=== PATIENT | female | born 1945 | race Asian ===

== ENCOUNTER 2016-08-26 09:51 | Outpatient (CLI) | payer MEDICARE, OTHER | END 2016-08-26 09:52 | disposition home or self-care (01) | DX: M81.0 Age-related osteoporosis without current pathological fracture (principal) ==

== ENCOUNTER 2016-11-11 10:22 | Outpatient (CLI) | payer MEDICARE, OTHER ==
--- NOTE | 2016-11-11 15:38 | XRAY Report ---
STANDING BILATERAL KNEES: 11/11/2016 CLINICAL INDICATION: Osteoarthritis. FINDINGS: Standing frontal and lateral views of the bilateral knees demonstrate mild bilateral osteo arthritis, with small osteophytes. There is no evidence of acute fracture. No effusion is present on either side. IMPRESSION: MILD BILATERAL OSTEOARTHRITIS. JOB #: [id number] EXT JOB #:[id number]
== END 2016-11-11 10:23 | disposition home or self-care (01) ==
LOC: DI 10:22
PROVIDERS: ATTEND Family Medicine
DX: M17.0 Bilateral primary osteoarthritis of knee (principal)
CPT/HCPCS: 73565

== ENCOUNTER 2017-05-10 10:44 | Outpatient (CLI) | payer MEDICARE, OTHER | END 2017-05-10 10:45 | disposition home or self-care (01) | LOC: DI 10:44 | PROVIDERS: ATTEND Radiology Radiation Oncology | DX: Z53.9 Procedure and treatment not carried out, unspecified reason (principal) ==

== ENCOUNTER 2017-05-18 12:54 | Outpatient (CLI) | payer MEDICARE, OTHER ==
--- NOTE | 2017-05-18 15:31 | Mammography Report ---
DIGITAL DIAGNOSTIC BILATERAL MAMMOGRAM: 05/18/2017 CLINICAL INDICATION: History of left breast cancer, status post lumpectomy and radiation therapy. COMPARISON: 08/2016, 03/2016, 08/2015, 02/2015 from [facility]; 01/2015 , 12/2014, 12/2013, 12/2012 from [facility]. TECHNIQUE: Bilateral CC and MLO views, left true lateral and spot magnification views. FINDINGS: The breasts again demonstrate scattered fibroglandular densities bilaterally. Postoperative and posttreatment changes in the left breast are stable. Coarse and punctate, typically benign calcifications are present. No suspicious masses, clustered microcalcifications, or regions of architectural distortion are identified. IMPRESSION: BENIGN FINDINGS. RECOMMENDATION: ROUTINE ANNUAL SCREENING UNLESS OTHERWISE CLINICALLY INDICATED. BIRADS CATEGORY 2-BENIGN FINDINGS. STANDARD QUALIFYING STATEMENTS 1. This examination was reviewed with the aid of Computer-Aided Detection (CAD). 2. A negative or benign imaging report should not delay biopsy if clinically suspicious findings are present. Consider surgical consultation if warranted. More than 5% of cancers are not identified by imaging. 3. Dense breasts may obscure an underlying neoplasm. JOB #: [id number] EXT JOB #: [id number] CHAR
== END 2017-05-18 12:55 | disposition home or self-care (01) ==
LOC: DI 12:54
PROVIDERS: ATTEND Radiology Radiation Oncology
DX: Z08 Encounter for follow-up examination after completed treatment for malignant neoplasm (principal); Z85.3 Personal history of malignant neoplasm of breast
CPT/HCPCS: 77066

== ENCOUNTER 2019-01-11 12:33 | Outpatient (CLI) | payer MEDICARE, OTHER ==
--- NOTE | 2019-01-11 15:47 | Ultrasound Report ---
Reason: CYST Procedure Date: 01/11/2019 Accession Number: [id number] / [id number] Procedure: US - Ext Limited Non Vascular CPT Code: FULL RESULT: EXAM: LEFT UPPER EXTREMITY MUSCULOSKELETAL ULTRASOUND - LIMITED EXAM DATE: 01/11/2019 01:32 PM. CLINICAL HISTORY: Dorsal wrist mass x 4 months. COMPARISON: None. TECHNIQUE: Real-time scanning was performed with static images obtained. FINDINGS: Dorsal to the wrist joint and in communication with the articular space is a 0.8 x 0.4 x 0.7 cm fluid collection, presumably a ganglion cyst. IMPRESSION: Ganglion cyst. Recommendation: If not amenable to immobilization, consider aspiration. RADIA
== END 2019-01-11 12:34 | disposition home or self-care (01) ==
LOC: DI 12:33
PROVIDERS: ATTEND Family Medicine
DX: M67.432 Ganglion, left wrist (principal)
CPT/HCPCS: 76882

== ENCOUNTER 2019-05-15 07:00 | Outpatient (CLI) | payer MEDICARE, OTHER | END 2019-05-15 23:59 | disposition home or self-care (01) | LOC: LAB.R 07:00 | PROVIDERS: ATTEND Nurse Practitioner Family | DX: R19.7 Diarrhea, unspecified (principal) | CPT/HCPCS: 81599; 87045; 87046; 87177; 87209; 87329 ==

== ENCOUNTER 2022-12-31 07:31 | Day surgery (SDC) | payer MEDICARE ==
[2022-12-31] MEDS ORDERED: LACTATED RINGERS 1,000 ML IV ONE (07:48)
--- NOTE | 2022-12-31 08:09 | ANESTHESIA ---
Pre-Anesthesia VS, & Labs - Diagnosis histroy of colon polyps - Procedure colonoscopy Height: 5 ft 3 in - NPO Other (prep as directed) - Is Patient ?: No - Lab Results Lab results reviewed: Yes Home Medications and Allergies Ascorbic Acid [Vitamin C] 500 mg PO 01/31/13 Aspirin 81 mg PO 01/31/13 Calcium [Calcio [place]] 500 mg PO 01/31/13 Multivitamin [Multivitamins] 1 each PO 01/31/13 [place]-3 Fatty Acids [Fish Oil] 500 mg PO 01/31/13 amLODIPine [Norvasc] 5 mg PO DAILY 01/31/13 Allergies/Adverse Reactions: Allergies Allergy/AdvReac Type Severity Reaction Status Date / Time No Known Drug Allergies Allergy Verified 01/31/13 09:51 Anes History & Medical History - Anesthetic History Anesthesia Complications: reports: No previous complications - Medical History Cardiovascular: reports: Hypertension, High cholesterol Pulmonary: reports: None Gastrointestinal: reports: GERD, Colon polyps, Hemorrhoids Musculoskeletal: reports: Osteoarthritis Endocrine/Autoimmune: reports: None Blood Disorders: reports: None Smoking Status: Never smoker Psychosocial: reports: No issues indicated - Surgical History General: reports: Cholecystectomy Gynecologic: reports: Hysterectomy, Oophrectomy Exam General: Alert, Oriented x3, Cooperative Dental: WNL Mouth Openin Fingerbreadth Neck Mobility: Normal Mallampati classification: II Thyromental Distance: 4-6 cm Respiratory: Lungs clear Cardiovascular: Regular rate Plan Anesthesia Type: General, Total IV Consent for Procedure(s) Verified and Reviewed: Yes Code Status: Attempt Resuscitation ASA classification: 2-Mild systemic disease Is this case an emergency?: No
[2022-12-31] MEDS ORDERED: PROPOFOL 500 MG/50 ML 500 MG/50 ML VIAL ONE (08:40)
--- NOTE | 2022-12-31 08:42 | HISTORY & PHYSICAL EXAMINATION ---
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, Oophrectomy Meds/Allgy - Home Medications Home Medications: Ambulatory Orders Medication Instructions Recorded Confirmed Ascorbic Acid [Vitamin C] 500 mg PO DAILY 01/31/13 12/31/22 Aspirin 81 mg PO DAILY 01/31/13 12/31/22 Calcium [Calcio [place]] 500 mg PO DAILY 01/31/13 12/31/22 Multivitamin [Multivitamins] 1 each PO DAILY 01/31/13 12/31/22 [place]-3 Fatty Acids [Fish Oil] 500 mg PO DAILY 01/31/13 12/31/22 amLODIPine [Norvasc] 5 mg PO DAILY 01/31/13 12/31/22 - Allergies Allergies/Adverse Reactions: Allergies Allergy/AdvReac Type Severity Reaction Status Date / Time No Known Drug Allergies Allergy Verified 01/31/13 09:51 Review of Systems - Other Findings Other Findings: 10 pt ros as above otherwise unremarkable Exam - Vital Signs Vital Signs: Vital Signs x48h Temp Pulse Resp BP Pulse Ox 12/31/22 07:30 36.0 C L 67 12 143/82 H 36 L - Physical Exam General Appearance: positive: No acute distress, Alert Eyes Bilateral: positive: PERRL, EOMI ENT: positive: No signs of dehydration Neck: positive: No JVD, Trachea midline Respiratory: positive: No respiratory distress Cardiovascular: positive: Regular rate & rhythm Abdomen: positive: No distention Neurologic/Psychiatric: positive: Oriented x3 Conclusion/Plan - Problem List (1) History of colon polyps Conclusion/Plan: plan colonoscopy. parq held and consent obtained - Lab Results Lab results reviewed: Yes
[2022-12-31] MEDS ORDERED: LACTATED RINGERS 400 ML IV ONE (09:18)
[2022-12-31 09:53] VITALS: BP 111/68
--- NOTE | 2022-12-31 13:51 | ANESTHESIA POST OP EVALUATION ---
Anesthesia Post Eval - Post Anesthesia Eval Vitals: Last Vital Signs Temp 36.2 C L 12/31/22 09:18 Pulse 65 12/31/22 09:47 Resp 16 12/31/22 09:47 BP 111/68 12/31/22 09:47 Pulse Ox 95 12/31/22 09:47 O2 Flow Rate CV Function Including HR & BP: Stable Pain Control: Satisfactory Nausea & Vomiting: Negative Mental Status: Baseline Respiratory Status: Airway Patent Hydration Status: Satisfactory Anesthesia Complications: None
== END 2022-12-31 07:32 | disposition home or self-care (01) ==
LOC: SDS 07:31
PROVIDERS: ATTEND Surgery
PROC: 0DBL8ZZ Excision of Transverse Colon, Via Natural or Artificial Opening Endoscopic (ICD-10-PCS; principal; 2022-12-31 08:45)
DX: Z12.11 Encounter for screening for malignant neoplasm of colon (principal); D12.3 Benign neoplasm of transverse colon; K57.30 Diverticulosis of large intestine without perforation or abscess without bleeding; I10 Essential (primary) hypertension
CPT/HCPCS: 45380; J7120

== ENCOUNTER 2023-09-23 20:11 | Emergency (ER) | payer MEDICARE ==
[2023-09-23] MEDS: SODIUM CHLORIDE 0.9% 1,000 ML IV STA ×2 (20:39→22:05)
[2023-09-23 20:44] LABS: BASOPHILS % (AUTO) 0.2 %; EOSINOPHILS % (AUTO) 0.1 %; HCT - HEMATOCRIT 44.7 % (37.0-47.0); LYMPHOCYTES # (AUTO) 0.8 10^3/uL (1.5-3.5); LYMPHOCYTES % (AUTO) 7.6 %; MEAN CORPUSCULAR HEMOGLOBIN 29.9 pg (27.0-31.0); MEAN CORPUSCULAR HGB CONC 33.6 g/dL (32.0-36.0); MEAN PLATELET VOLUME 11.1 fL (7.9-10.8); MONOCYTES # (AUTO) 0.6 10^3/uL (0.0-1.0); MONOCYTES % (AUTO) 5.3 %; NEUTROPHILS # (AUTO) 9.4 10^3/uL (1.5-6.6); NEUTROPHILS % (AUTO) 86.5 %; PLT - PLATELET COUNT 161 10^3/uL (130-450); RED BLOOD COUNT 5.02 10^6/uL (4.20-5.40); RED CELL DISTRIBUTION WIDTH 14.8 % (12.0-15.0); WHITE BLOOD COUNT 10.9 x10^3/uL (4.8-10.8)
--- NOTE | 2023-09-23 20:48 | ED Physician Documentation ---
History of Present Illness - Stated complaint Stated Complaint: GI,GEN WEAKNESS - Chief complaint Chief Complaint: Abd Pain - History obtained from History obtained from: Patient, Family (spouse) - Additonal information Additional information: 77yF p/w intermittent nausea, feverishness/chills, and large volume diarrhea X 3 days with associated weakness. patient states she has had some progressive leg cramping as well. currently with mild abdominal cramping, /. patient states she tried taking immodium without resolution of diarrhea. she does have history of hemorrhoids and noted small amount of blood when wiping with tissue paper, which she has had in the past. denies urinary sx. 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, Oophrectomy - Present Medications Home Medications: Ambulatory Orders Medication Instructions Recorded Confirmed Ascorbic Acid [Vitamin C] 500 mg PO DAILY 01/31/13 12/31/22 Aspirin 81 mg PO DAILY 01/31/13 12/31/22 Calcium [Calcio [place]] 500 mg PO DAILY 01/31/13 12/31/22 Multivitamin [Multivitamins] 1 each PO DAILY 01/31/13 12/31/22 [place]-3 Fatty Acids [Fish Oil] 500 mg PO DAILY 01/31/13 12/31/22 amLODIPine [Norvasc] 5 mg PO DAILY 01/31/13 12/31/22 - Allergies Allergies/Adverse Reactions: Allergies Allergy/AdvReac Type Severity Reaction Status Date / Time No Known Drug Allergies Allergy Verified 09/23/23 20:14 - Social History Does the pt smoke?: No Smoking Status: Never smoker Does the pt drink ETOH?: No Does the pt have substance abuse?: No - Immunizations Immunizations are current?: Yes PD ED PE NORMAL - Vitals Vital signs reviewed: Yes - General General: Alert and oriented X 3, No acute distress, Well developed/nourished - HEENT HEENT: Atraumatic, PERRL, EOMI - Neck Neck: Supple, no meningeal sign - Cardiac Cardiac: RRR - Respiratory Respiratory: No respiratory distress, Clear bilaterally - Abdomen Abdomen: Non tender, Non distended - Back Back: No CVA TTP - Derm Derm: Normal color, Warm and dry - Neuro Neuro: Alert and oriented X 3 Results - Vitals Vitals: Vital Signs - 24 hr 09/23/23 20:15 Temperature 36.8 C Heart Rate 100 Respiratory 16 Rate Blood Pressure 112/90 H O2 Saturation 98 Oxygen O2 Source Room air - EKG (time done) 2249 EKG releavant findings:: EKG personally interpreted by author of this note. Relevant findings are: Rate: Rate (enter#) (84) Rhythm: NSR [place]: LAD Intervals: Normal [place] QRS: Normal Ischemia: Normal ST segments - Labs Labs: Laboratory Tests 09/23/23 09/23/23 09/23/23 20:36 20:36 21:09 WBC 10.9 H RBC 5.02 Hgb 15.0 Hct 44.7 MCV 89.0 MCH 29.9 MCHC 33.6 RDW 14.8 Plt Count 161 MPV 11.1 H Neut # (Auto) 9.4 H Lymph # (Auto) 0.8 L [place] # (Auto) 0.6 Eos # (Auto) 0.0 Baso # (Auto) 0.0 Absolute Nucleated RBC 0.00 Nucleated RBC % 0.0 Sodium 128 L Potassium 3.3 L Chloride 100 L Carbon Dioxide 17 L Anion Gap 11.0 BUN 29 H Creatinine 1.0 Estimated GFR (MDRD) 54 L Glucose 136 H Calcium 8.8 Total Bilirubin 0.7 AST 37 ALT 30 Alkaline Phosphatase 48 Total Protein 7.4 Albumin 4.1 Globulin 3.3 Albumin/Globulin Ratio 1.2 Lipase 10 L Urine Color Urine Clarity Urine pH Ur Specific [place]iley Urine Protein Urine Glucose (UA) Urine Ketones Urine Occult Blood Urine Nitrite Urine Bilirubin Urine Urobilinogen Ur Leukocyte Esterase Urine RBC Urine WBC Ur Squamous Epith Cells Urine Bacteria Ur Microscopic Review Urine Culture Comments Nasal Adenovirus (PCR) NOT DETECTED Nasal B. parapertussis DNA (PCR) NOT DETECTED Nasal Coronavir 229E PCR NOT DETECTED Nasal Coronavir HKU1 PCR NOT DETECTED Nasal Coronavir NL63 PCR NOT DETECTED Nasal Coronavir OC43 PCR NOT DETECTED Nasal Enterovir/Rhinovir PCR NOT DETECTED Nasal Influenza B PCR NOT DETECTED Nasal Influenza A PCR NOT DETECTED Nasal Parainfluen 1 PCR NOT DETECTED Nasal Parainfluen 2 PCR NOT DETECTED Nasal Parainfluen 3 PCR NOT DETECTED Nasal Parainfluen 4 PCR NOT DETECTED Nasal RSV (PCR) NOT DETECTED Nasal B.pertussis DNA PCR NOT DETECTED Nasal C.pneumoniae (PCR) NOT DETECTED [place] Human Metapneumo PCR NOT DETECTED Nasal M.pneumoniae (PCR) NOT DETECTED Nasal SARS-CoV-2 (PCR) NOT DETECTED 09/23/23 09/23/23 21:16 23:06 WBC RBC Hgb Hct MCV MCH MCHC RDW Plt Count MPV Neut # (Auto) Lymph # (Auto) [place] # (Auto) Eos # (Auto) Baso # (Auto) Absolute Nucleated RBC Nucleated RBC % Sodium 130 L Potassium 3.6 Chloride 104 Carbon Dioxide 18 L Anion Gap 8.0 BUN 27 H Creatinine 0.9 Estimated GFR (MDRD) 61 L Glucose 119 H Calcium 8.2 L Total Bilirubin AST ALT Alkaline Phosphatase Total Protein Albumin Globulin Albumin/Globulin Ratio Lipase Urine Color YELLOW Urine Clarity CLEAR Urine pH 6.0 Ur Specific Ailey 1.025 Urine Protein TRACE Urine Glucose (UA) NEGATIVE Urine Ketones 15 H Urine Occult Blood NEGATIVE Urine Nitrite NEGATIVE Urine Bilirubin NEGATIVE Urine Urobilinogen 0.2 (NORMAL) Ur Leukocyte Esterase TRACE H Urine RBC 0-5 Urine WBC 6-10 H Ur Squamous Epith Cells FEW Squamous Urine Bacteria Few Ur Microscopic Review INDICATED Urine Culture Comments INDICATED Nasal Adenovirus (PCR) Nasal B. parapertussis DNA (PCR) Nasal Coronavir 229E PCR Nasal Coronavir HKU1 PCR Nasal Coronavir NL63 PCR Nasal Coronavir OC43 PCR Nasal Enterovir/Rhinovir PCR Nasal Influenza B PCR Nasal Influenza A PCR Nasal Parainfluen 1 PCR Nasal Parainfluen 2 PCR Nasal Parainfluen 3 PCR Nasal Parainfluen 4 PCR Nasal RSV (PCR) Nasal B.pertussis DNA PCR Nasal C.pneumoniae (PCR) [place] Human Metapneumo PCR Nasal M.pneumoniae (PCR) Nasal SARS-CoV-2 (PCR) PD Medical Decision Making - ED course ED course: 77yF p/w diarrhea, general malaise, weakness, likely 2/2 viral syndrome, found to have normal vital signs and benign exam. she did return from [place] 1 week ago but states she felt fine during the cruise and after returning up until a couple days ago. Given the timing it is most likely this is 2/2 simple viral gastroenteritis. RVP sent. CBC, abdominal panel, u/a ordered and benign aside from some hyponatremia and mild hypokalemia likely related to di arrhea. ekg without acute changes. fluids and potassium supplementation provided. given her large volume losses 2/2 diarrhea, it is likely she is experiencing mild to moderate dehydration, resulting in her weakness. She states this is improved s/p IV pepcid and IVF in the ED. Symptomatic care discussed. patient will f/u with pcp. return precautions given. Departure - Departure Disposition: 01 Home, Self Care Clinical Impression: Diarrhea, Abdominal cramping, Weakness Condition: Stable Instructions: ED Diarrhea Viral Comments: You were seen in the emergency department for dehydration related to diarrhea. This is most likely caused by a virus (viral gastroenteritis). You will benefit from adult electrolyte solution, pedialyte or gatorade daily as well as salty broths and clear soups. Please follow-up with your primary care provider and return to the emergency department if you have any new or worsening symptoms or other concerns. Forms: PCP List
[2023-09-23] MEDS: FAMOTIDINE 20 MG/2 ML VIAL IVP STA (20:53)
[2023-09-23 20:56] LABS: ALBUMIN 4.1 g/dL (3.2-5.5); ALBUMIN/GLOBULIN RATIO 1.2 (1.0-2.2); BILIRUBIN,TOTAL 0.7 mg/dL (0.2-1.0); CALCIUM 8.8 mg/dL (8.5-10.3); POTASSIUM 3.3 mmol/L (3.5-4.5); TOTAL PROTEIN 7.4 g/dL (6.4-8.9)
[2023-09-23 21:33] LABS: BILIRUBIN,URINE NEGATIVE (NEGATIVE); GLUCOSE, URINE (UA) NEGATIVE (NEGATIVE); KETONES,URINE (UA) 15 mg/dL (NEGATIVE); LEUKOCYTE ESTERASE, URINE TRACE (NEGATIVE); NITRITE,URINE NEGATIVE (NEGATIVE); OCCULT BLOOD,URINE NEGATIVE (NEGATIVE); PROTEIN,URINE TRACE mg/dL (NEGATIVE); UROBILINOGEN,URINE 0.2 (NORMAL) E.U./dL (NORMAL)
[2023-09-23 21:42] LABS: CLARITY,URINE CLEAR (CLEAR)
[2023-09-23] MEDS: POTASSIUM CHLOR 10 MEQ/100 ML 10 MEQ/100 ML BAG IV STA (22:05)
[2023-09-23] MEDS: POTASSIUM CHLORIDE 20 MEQ/15 ML UDC PO STA (22:05)
[2023-09-23 22:11] LABS: BACTERIA,URINE Few /HPF (None Seen); RBC,URINE 0-5 /HPF (0-5); SQUAMOUS EPITHELIAL CELL,UR FEW Squamous (<= Few)
[2023-09-23 22:34] LABS: B. PARAPERTUSSIS- RESP PCR PAN NOT DETECTED; B. PERTUSSIS- RESP PCR PANEL NOT DETECTED; C. PNEUMONIAE- RESP PCR PANEL NOT DETECTED; CORONAVIRUS 229E-RESP PCR NOT DETECTED; CORONAVIRUS HKU1-RESP PCR NOT DETECTED; CORONAVIRUS NL63-RESP PCR NOT DETECTED; CORONAVIRUS OC43-RESP PCR NOT DETECTED; HUMAN METAPNEUMOVIRUS NOT DETECTED; INFLUENZA A- RESP PCR PANEL NOT DETECTED; INFLUENZA B - RESP PCR PANEL NOT DETECTED; M. PNEUMONIAE- RESP PCR PANEL NOT DETECTED; PARAINFLUENZA VIRUS 1 NOT DETECTED; PARAINFLUENZA VIRUS 2 NOT DETECTED; PARAINFLUENZA VIRUS 3 NOT DETECTED; PARAINFLUENZA VIRUS 4 NOT DETECTED; RHINOVIRUS/ENTEROVIRUS NOT DETECTED; RSV- RESP PCR PANEL NOT DETECTED; SARS-CoV-2 -RESP PCR PANEL NOT DETECTED
[2023-09-23 23:35] LABS: CALCIUM 8.2 mg/dL (8.5-10.3); CREATININE 0.9 mg/dL (0.6-1.3); POTASSIUM 3.6 mmol/L (3.5-4.5)
[2023-09-24 00:16] VITALS: BP 133/57; O2SAT 99
== END 2023-09-24 | disposition home or self-care (01) ==
LOC: ED 20:11
DX: R19.7 Diarrhea, unspecified (principal); R10.9 Unspecified abdominal pain; R53.1 Weakness; I10 Essential (primary) hypertension; E78.00 Pure hypercholesterolemia, unspecified; Z86.010 Personal history of colon polyps; Z87.442 Personal history of urinary calculi
CPT/HCPCS: 36415; 80048; 80053; 81001; 83690; 85025; 87077; 87086; 87633; 93005; 96361; 96365; 96375; 99283; 99284; A9270; 81003

== ENCOUNTER 2023-09-29 12:21 | Outpatient (CLI) | payer MEDICARE ==
--- NOTE | 2023-09-29 20:45 | XRAY Report ---
PROCEDURE: Knee 3V BL INDICATIONS: OSTEOARTHRITIS, KNEES, BILATERAL TECHNIQUE: 3 views of the knee was obtained. COMPARISON: None FINDINGS: Bones: No fractures or dislocations. No suspicious bony lesions. Moderate bilateral joint space domo rowing medially Soft tissues: No knee joint effusion. No suspicious soft tissue calcifications or masses. IMPRESSION: Moderate bilateral medial compartment joint space narrowing Reviewed by: Jas Muhammad MD on 09/29/2023 7:43 PM AKDT Approved by: Jas Muhammad MD on 09/29/2023 7:43 PM AKDT Station ID: [id number]
== END 2023-09-29 12:22 | disposition home or self-care (01) ==
LOC: DI.N 12:21
PROVIDERS: ATTEND Internal Medicine
DX: M17.0 Bilateral primary osteoarthritis of knee (principal)